=== PATIENT | female | born 1980 | race Caucasian/White ===

== ENCOUNTER 2017-01-05 10:47 | Day surgery (SDC) | payer MEDICAID ==
[~2017-01-05] VITALS: Ht 161.3 cm; Wt 99.8 kg
[~2017-01-05 10:47] MED LIST: AMIT10TA6 PO; CIPR-213 PO; CLON0.1T PO; CLON0.5T4 PO; CYCL5TAB PO; ESCI20TA PO; IBUP-1724 PO; KETO10TA2 PO; LR 1,000 ML IV SCH; PREG100C PO
[2017-01-05 11:10] VITALS: BP 138/81; PULSE 92; RESP 15; TEMP 98.8; O2SAT 95; Ht 161.3 cm; Wt 99.8 kg
[2017-01-05 11:23] LABS: BASOPHILS % (AUTO) 0.3 % (0-2); EOSINOPHILS # (AUTO) 0.1 T/MM3 (0-0.5); EOSINOPHILS % (AUTO) 0.8 % (0-4); HCT - HEMATOCRIT 43.6 % (36-46); HGB - HEMOGLOBIN 14.9 GM/DL (12-16); IMMATURE GRANULOCYTE # (AUTO) 0.03 T/MM3 (0.00-0.03); IMMATURE GRANULOCYTE % (AUTO) 0.3 % (0.0-0.5); LYMPHOCYTES # (AUTO) 2.7 T/MM3 (1-4.8); LYMPHOCYTES % (AUTO) 22.5 % (23-45); MEAN CORPUSCULAR HGB 29.1 UUG (26-34); MEAN CORPUSCULAR HGB CONC(MCHC 34.2 GM/DL (31-37); MEAN CORPUSCULAR VOLUME 85.2 UM3 (80-100); MEAN PLATELET VOLUME 10.9 UM3 (9.4-12.4); MONOCYTES # (AUTO) 0.6 T/MM3 (0-0.8); MONOCYTES % (AUTO) 4.8 % (0-9.0); NEUTROPHILS #(AUTO)-ABSOLUTE 8.5 T/MM3 (1.8-7.7); NEUTROPHILS % (AUTO) 71.3 % (33-66); RED BLOOD COUNT 5.12 M/MM3 (4.00-5.20)
[2017-01-05 11:33] LABS: ANION GAP 13 MEQ/L (5-15); BUN/CREATININE RATIO 12 RATIO (6-26); CALCIUM 9.5 MG/DL (8.4-10.2); CHLORIDE 107 MEQ/L (98-107); CO2 - CARBON DIOXIDE 24 MEQ/L (22-30); GLOMERULAR FILTRATION RATE 63; GLUCOSE 97 MG/DL (65-110); POTASSIUM 3.8 MEQ/L (3.6-5); SODIUM 144 MEQ/L (134-144)
[2017-01-05] MEDS ORDERED: PROPOFOL 500mg 50 ML IV ONE (11:37)
[2017-01-05] MEDS ORDERED: PROPOFOL 200mg 20 ML IV ONE ×3 (11:37→12:40)
[2017-01-05 11:38] LABS: INR 1.02 (0.76-1.04); PROTHROMBIN TIME 11.1 SEC (9.31-12.49); PTT 31.5 SEC (24-36)
--- NOTE | 2017-01-05 11:42 | ANESPREOP ---
Anesthesia Record Date and Time DATE: 01/05/17 TIME: 11:40 Proposed Surgical Procedure ESWL/STENT REMOVAL NPO since: 1929 Allergies: Coded Allergies: iodine (Unverified Allergy, Severe, ANAPHYLAXIS, 01/05/17) codeine (Unverified Allergy, Unknown, RASH, 01/05/17) Ht/Wt/BMI Height: 5 ' 3.50 " Weight: 99.800 kg BMI: 38.4 kg/m2 Vital Signs Date Time Temp Pulse Resp B/P Pulse Ox O2 Delivery O2 Flow Rate FiO2 01/05/17 11:10 98.8 92 15 138/81 95 Room Air Medications Inpatient Medications Current Medications Medications (Trade) Dose Ordered Sig/Jim Start Time Stop Time Status Last Admin Dose Admin Lactated Ringer's (Lactated Ringers) 1,000 ml @ 30 mls/hr Q24H 01/05/17 07:00 01/05/17 11:25 30 MLS/HR Amitriptyline HCl (Amitriptyline HCl) 10 Mg Tablet, 1 TAB PO HS, (Reported) Last Taken: on 12/30/16 Ciprofloxacin HCl (Cipro) 250 Mg Tablet, 250 MG PO Q12HR, (Reported) Last Taken: on 01/05/17 0700 Clonazepam (Clonazepam) 0.5 Mg Tablet, 0.5 TAB PO BID, (Reported) Last Taken: on 01/02/17 Cyclobenzaprine HCl (Cyclobenzaprine HCl) 5 Mg Tablet, 1 TAB PO BID PRN for PRN ORDERS, (Reported) MAY CAUSE DROWSINESS OR DIZZINESS Last Taken: on Unknown Date & Time Escitalopram Oxalate (Lexapro) 20 Mg Tablet, 1 TAB PO DAILY, (Reported) Last Taken: on 01/04/17 0800 Ibuprofen (Ibuprofen) 200 Mg Tablet, 600 MG PO Q6H PRN for PAIN, (Reported) Last Taken: on 12/29/16 Ketorolac Tromethamine (Ketorolac Tromethamine) 10 Mg Tablet, 1 TAB PO Q6H, (Reported) Last Taken: on Unknown Date & Time Pregabalin (Lyrica) 100 Mg Capsule, 100 MG PO BID, (Reported) Last Taken: on 01/04/171999 Currently on Beta Tano: No Medical/Surgical History Anesthesia PMH: Reports: Anxiety, Cancer (CERVICAL PER H&P), Depression, Headaches (history of migraines), Obesity, Other (fibromyalgia), Sleep Apnea ( does not wear cpap ) Smoking Status: Current every day smoker Has pt. smoked today?: No # of Years: 20 Use Chewing Tobacco?: No Second Hand Exposure: No Substance Use Type: opiates (history), painkillers Alcohol Intake: none Past Surgical History Orthopedic Surgeries: Yes - B/L CTR Abdominal Surgeries: Yes - HASMUKH Genitourinary Surgeries: Yes - LITHO Cardiac Surgeries: Endocrine Surgeries: Reproductive Surgeries: Yes - CERVICAL CA CELLS FROZEN, C-SECTIONX1,TUBAL Neurological Surgeries: Ear Surgeries: Nose Surgeries: Throat Surgeries: Other Surgeries: Yes - GANGLION CYST REMOVAL Anesthesia Adverse Reactions: FOUND none Family Hx of Anesthesia Advers: none Hx of Motion Sickness: No Pertinent Findings Laboratory Tests 01/05/17 11:13 Test 01/05/17 11:13 Activated Partial Thromboplast Time 31.5SEC (24-36) Human Chorionic Gonadotropin, Qual Negative (NEGATIVE) Prothromb Time International Ratio 1.02 (0.76-1.04) Physical Exam Respiratory: Bilat breath sounds equal, Lungs clear Cardiovascular: FOUND Regular rate, rhythm Airway Assessment Mallampati Score: II TMD: 3 Fingerbreadths Neck Extension: Fair Overall Assessment: May Be Diff Intubation (obese, small mouth opening) ASA: 3 Plan Anesthesia Plan: TIVA, LMA, GETA Discussion Discussed risks/options/alternatives of anesthesia and questions answered. Patient consents. Nursing pain assessment noted. Present: Family Member Attestation Statement Prior to the delivery of any anesthetic medication, I examined the patient, developed the plan, obtained the patient's consent and discussed the risk and benefits of the procedure with the patient/guardian. DICK BUSH CRNA Jan 05, 2017 11:42
[2017-01-05] MEDS ORDERED: FENTANYL 100mcg/2ml INJECTION ONE ×2 (11:52→12:14)
[2017-01-05] MEDS ORDERED: KETAMINE 500mg/10ml INJECTION ONE (11:52)
[2017-01-05] MEDS ORDERED: METOCLOPRAMIDE 10mg/2ml INJECTION ONE (12:04)
[2017-01-05] MEDS ORDERED: ONDANSETRON 4mg/2ml INJECTION ONE (12:05)
[2017-01-05] MEDS ORDERED: GLYCOPYRROLATE 0.4mg/2ml INJECTION ONE (12:05)
[2017-01-05] MEDS ORDERED: DEXAMETHASONE 4mg/ml - 1ml INJECTION ONE (12:05)
[2017-01-05] MEDS ORDERED: LR 1,000 ML IV SCH (12:38)
[2017-01-05] MEDS ORDERED: HYDROCODONE/APAP 5 mg/325 mg TABLET PO PRN (12:45)
[2017-01-05] MEDS ORDERED: ONDANSETRON 4mg/2ml INJECTION IV PRN (12:45)
[2017-01-05] MEDS ORDERED: MORPHINE SULFATE 4 MG SYRINGE IV PRN (12:45)
[2017-01-05 12:57] VITALS: BP 114/67; PULSE 82; RESP 18; TEMP 97.7; O2SAT 96
[2017-01-05] MEDS ORDERED: LEVOFLOXACIN 500 mg IVPB 500 MG in D5W 100 ML IV ONE (13:00)
[2017-01-05 13:05] VITALS: BP 104/62; PULSE 82; RESP 18; O2SAT 96
[2017-01-05 13:15] VITALS: BP 116/64; PULSE 84; RESP 18; O2SAT 97
[2017-01-05 13:30] VITALS: BP 143/83; PULSE 86; RESP 18; O2SAT 97
[2017-01-05 13:45] VITALS: BP 141/78; PULSE 84; RESP 16; O2SAT 97
--- NOTE | 2017-01-05 16:52 | ANESPO ---
Post-Op Note Date 01/05/17 Time: 13:54 Status Pt Participated in Evaluation: Pt participated in person Vital Signs Date Time Temp Pulse Resp B/P Pulse Ox O2 Delivery O2 Flow Rate FiO2 01/05/17 13:45 84 16 141/78 97 Room Air 01/05/17 12:57 97.7 6.00 Respiratory Function: Airway patent Cardiovascular Function: Regular pulse Mental Status: Alert/oriented Pain Level Intensity: 2 Unable to Assess Pain Due To: Pt Sleeping Hydration: Taking po fluids Complications during Recovery None apparent Follow-Up Instructions Instructions Per Surgeon AUGUSTA DAY CRNA Jan 05, 2017 16:52
--- NOTE | 2017-01-06 13:01 | OPNOTEF ---
DATE OF OPERATION 01/05/2017 PREOPERATIVE DIAGNOSIS Right kidney stones and retained ureteral stent. POSTOPERATIVE DIAGNOSIS Right kidney stones and retained ureteral stent. OPERATION PERFORMED ESWL of the right kidney stone. SURGEON Alexandro Guzman MD ANESTHESIA TIVA INDICATIONS Mrs. Haro is a 36-year-old woman who recently was hospitalized at the [facility] with sepsis due to urinary tract infection. At the time, she was found to have obstructing right kidney stone. Dr. Gonzalez, another urologist in [place], placed a ureteral stent in the right kidney to decompress the kidney. She has been on antibiotic and sepsis and urinary tract infection have resolved. Patient is brought in to have the stone treated by lithotripsy and possibly remove the stent. DESCRIPTION OF PROCEDURE Patient was taken to the operating room and placed on [employer] lithotripsy table. Stone was able to be seen fluoroscopically easily. There were three stones and one that was symptomatic was on the infundibulum of calyx. This was picked out and lined up on the path of the shock wave by fluoroscopy. Stone was then fragmented from energy level 2 to maximum energy level 6. Total of 3000 shocks delivered. Progress was checked intermittently with fluoroscopy and stone position was accordingly realigned to have the maximum shockwave to the stone. At the end of 3000 shocks, stone appeared to at least have partially fragmented but because there was still a substantial sized stone left, we decided to leave the stent in. Patient was taken to the recovery room in stable condition. [facility] SYSTEMSt[facility]
== END 2017-01-05 13:55 | disposition home or self-care (01) ==
LOC: SCU 10:47
PROVIDERS: ATTEND Specialist
DX: N20.0 Calculus of kidney (principal); Z96.0 Presence of urogenital implants; Z87.442 Personal history of urinary calculi; Z87.440 Personal history of urinary (tract) infections; F41.9 Anxiety disorder, unspecified; K59.04 Chronic idiopathic constipation; M79.7 Fibromyalgia; G47.33 Obstructive sleep apnea (adult) (pediatric); E66.9 Obesity, unspecified; Z68.38 Body mass index [BMI] 38.0-38.9, adult; J30.2 Other seasonal allergic rhinitis; F32.9 Major depressive disorder, single episode, unspecified; F17.200 Nicotine dependence, unspecified, uncomplicated; F11.20 Opioid dependence, uncomplicated; Z79.899 Other long term (current) drug therapy; Z86.19 Personal history of other infectious and parasitic diseases; Z92.29 Personal history of other drug therapy
CPT/HCPCS: 36415; 50590; 80048; 84703; 85025; 85610; 85730; J1100; J1956; J2405; J2704; J2765; J3010; J7060; J7120

== ENCOUNTER → 2017-01-13 | Outpatient (CLI) | payer MEDICAID ==
[~2017-01-13] MED LIST changes: -CLON0.1T PO; -IBUP-1724 PO; -KETO10TA2 PO; -LR 1,000 ML IV SCH
--- NOTE | 2017-01-13 09:44 | DI ---
Indication: ITS.REASON: N20.0 Calculus of kidney; Z96.0 Presence of urogenital implants PROCEDURE: KUB: Encounter: Initial Comparison: Renal CT dated May 09, 2016 Findings: Right-sided double-J stent appears appropriately positioned. No definite stone burden seen along the course of the stent. There are bilateral pelvic phleboliths, one of which is in close proximity to the distal aspect of the stent, annotated with an arrow, measuring 2 mm. This seems more rounded than a ureteral stone fragment would typically be. Clustered stones in the lower pole of the right kidney measuring up to 1.5 cm in total dimension. Nonobstructive nonspecific bowel gas pattern. Impression: Findings as above. .
== END ==
LOC: IMA 09:03
PROVIDERS: ATTEND Specialist
DX: N20.0 Calculus of kidney (principal); Z96.0 Presence of urogenital implants